=== PATIENT | male | born 1955 | race Caucasian/White ===

== ENCOUNTER → 2017-01-20 | Outpatient (CLI) | payer BC ==
[2017-01-20 12:11] LABS: ABSOLUTE LYMPHOCYTES (AUTO) 2.6 10^3/uL (0.5-4.7); ABSOLUTE MONOCYTES (AUTO) 0.4 10^3/uL (0.1-1.4); ABSOLUTE NEUT (AUTO) 3.4 10^3/uL (1.7-8.2); BASOPHILS % (AUTO) 0.5 % (0-2); EOSINOPHILS % (AUTO) 0.1 % (0-6); HEMATOCRIT 45.5 % (37.9-51.0); HEMOGLOBIN 15.7 g/dL (13.5-17.0); HGB HCT DIFFERENCE 1.6; MEAN CORPUSCULAR HEMOGLOBIN 32.1 pg (27.0-33.4); MEAN CORPUSCULAR HGB CONC 34.6 g/dL (32.0-36.0); MEAN CORPUSCULAR VOLUME 93 fl (80-97); MONOCYTES % (AUTO) 5.9 % (3-13); RED CELL DISTRIBUTION WIDTH 14.1 % (11.5-14.0); SEGMENTED NEUTROPHILS % (AUTO) 52.5 % (42-78); WHITE BLOOD COUNT 6.4 10^3/uL (4.0-10.5)
[2017-01-20 12:26] LABS: APPEARANCE,URINE CLEAR; BILIRUBIN,URINE NEGATIVE (NEGATIVE); GLUCOSE, URINE NEGATIVE (NEGATIVE); KETONES,URINE NEGATIVE (NEGATIVE); LEUKOCYTE ESTERASE,URINE NEGATIVE (NEGATIVE); NITRITE,URINE NEGATIVE (NEGATIVE); PROTEIN,URINE NEGATIVE (NEGATIVE); URINE SPECIFIC GRAVITY 1.017
[2017-01-20 12:34] LABS: ANION GAP 15 (5-19); BLOOD UREA NITROGEN 10 mg/dL (7-20); CALCIUM 9.5 mg/dL (8.4-10.2); CARBON DIOXIDE 25 mmol/L (22-30); CHLORIDE 104 mmol/L (98-107); CREATININE RESULT 0.86 mg/dL (0.52-1.25); GLUCOSE 89 mg/dL (75-110); POTASSIUM 4.4 mmol/L (3.6-5.0); SODIUM 143.7 mmol/L (137-145)
--- NOTE | 2017-01-20 12:48 | RADIOLOGY REPORT (SQ) ---
EXAM DESCRIPTION: CHEST PA/LATERAL COMPLETED DATE/TIME: 01/20/2017 12:11 pm REASON FOR STUDY: PRE-OP COMPARISON: 08/11/2015 EXAM PARAMETERS: NUMBER OF VIEWS: two views TECHNIQUE: Digital Frontal and Lateral radiographic views of the chest acquired. RADIATION DOSE: NA LIMITATIONS: none FINDINGS: LUNGS AND PLEURA: No opacities, masses or pneumothorax. No pleural effusion. MEDIASTINUM AND HILAR STRUCTURES: No masses or contour abnormalities. HEART AND VASCULAR STRUCTURES: Heart normal size. No evidence for failure. BONES: No acute findings. HARDWARE: None in the chest. OTHER: No other significant finding. IMPRESSION: NO SIGNIFICANT RADIOGRAPHIC FINDING IN THE CHEST. TECHNICAL DOCUMENTATION: JOB ID: [id number] [employer]- All Rights Reserved
--- NOTE | 2017-01-20 18:38 | EKG REPORT ---
SEVERITY:- BORDERLINE ECG - SINUS RHYTHM BORDERLINE INFERIOR Q WAVES : Confirmed by: Marie Arroyo 20-Jan-2017 18:36:24
== END ==
LOC: OD 11:20
PROVIDERS: ATTEND Orthopaedic Surgery
DX: Z01.810 Encounter for preprocedural cardiovascular examination (principal); Z01.812 Encounter for preprocedural laboratory examination; Z01.818 Encounter for other preprocedural examination
CPT/HCPCS: 36415; 71020; 80048; 81001; 85025; 93005; 93010

== ENCOUNTER 2017-02-17 05:44 | Inpatient (IN) | payer BC ==
[~2017-02-17 05:44] MED LIST: LACTATED RINGERS 1000 ML IV PRN; LIDOCAINE 0.5% INJ-PF (5 MG/ML) 50 ML SDV SUBCUT PRN
[2017-02-17] MEDS ORDERED: VANCOMYCIN HCL INJ 1000 MG VIAL ONE (05:51)
[2017-02-17] MEDS ORDERED: CEFAZOLIN INJ 1 GM VIAL ONE (06:33)
[2017-02-17] MEDS ORDERED: BUPIVACAINE INJ/PF LIPOSOME/PF 266 MG/20 ML SDV ONE (06:44)
[2017-02-17] MEDS ORDERED: THROMBIN (BOVINE) TOPICAL 20000 UNIT VIAL ONE (06:44)
[2017-02-17] MEDS ORDERED: THROMBIN (BOVINE) 5000 UNIT EPITAXIS KIT ONE (06:44)
[2017-02-17] MEDS ORDERED: MIDAZOLAM 2 MG/2 ML INJ ONE (07:09)
[2017-02-17] MEDS ORDERED: FENTANYL CITRATE INJ/PF 100 MCG/2 ML AMPUL ONE (07:09)
[2017-02-17] MEDS ORDERED: EPHEDRINE SULFATE INJ 50 MG/1 ML AMPULE ONE (07:09)
[2017-02-17] MEDS ORDERED: ONDANSETRON HCL INJ/PF 4 MG/2 ML SDV ONE (07:10)
[2017-02-17] MEDS ORDERED: IBUPROFEN INJ 800 MG/8 ML VIAL IV ONE (07:10)
[2017-02-17] MEDS ORDERED: TRANEXAMIC ACID INJ/PF 1,000 MG/10 ML SDV IV ONE ×2 (07:10→10:30)
[2017-02-17] MEDS ORDERED: PROPOFOL INJ 200 MG/20 ML VIAL IV ONE (07:10)
[2017-02-17] MEDS ORDERED: OXYCODONE HCL SR 10 MG TABLET PO PRN (07:16)
[2017-02-17] MEDS ORDERED: LANSOPRAZOLE 15 MG TAB.RAP.DR PO PRN (07:17)
[2017-02-17] MEDS ORDERED: DIPHENHYDRAMINE HCL 50 MG/ML VIAL IV PRN ×2 (08:04→08:42)
[2017-02-17] MEDS ORDERED: FENTANYL CITRATE INJ/PF 100 MCG/2 ML AMPUL IV PRN ×3 (08:04)
[2017-02-17] MEDS ORDERED: MEPERIDINE HCL/PF INJ 25 MG/1 ML DISP.SYRIN IV PRN (08:04)
[2017-02-17] MEDS ORDERED: OXYCODONE-ACETAMINOPHEN 5-325 MG TABLET PO PRN ×2 (08:04)
[2017-02-17] MEDS ORDERED: PROMETHAZINE HCL INJ 25 MG/1 ML VIAL IV PRN ×2 (08:04)
--- NOTE | 2017-02-17 08:29 | Operative Report ---
Operative Report DATE OF SURGERY: 02/17/17 PREOPERATIVE DIAGNOSIS: Right knee arthritis OPERATION: Right knee arthroplasty SURGEON: MARIBELL OBREGON 1ST COUNCILPERSON: LEIGH ALEJANDRO ANESTHESIA: Spinal TISSUE REMOVED OR ALTERED: Bone to pathology ESTIMATED BLOOD LOSS: 100 PROCEDURE: Implants used: Femur: [place] triathlon #7 CR femur Tibia: 7 tibia Tibial liner: 9 mm CS insert Patella: 40 mm oval patella Procedure with the patient supine on the operating table the right the limb is prepped and draped in a sterile fashion. The limb was elevated for exsanguination and the tourniquet inflated to 280 torr. A standard midline median parapatellar approach the knee is taken. Access is gained to the femoral canal through the intercondylar notch. Intramedullary alignment instrumentation used to resect 10 mm of distal femur in 5 of valgus. Sizing guide indicated a size 7 femur. Appropriate cutting jig is then used to fashion anterior posterior and chamfer cuts. A trial reduction femurs performed and this is judged to be adequate. Attention was next turned to the tibia. Using an extra medullary alignment system 9 millimeters was resected off the lateral tibial plateau. This is sized to a size 7 tibia. A trial reduction was now performed with a 7 femur and a 7 tibia using a 9 millimeters spacer. It is full extension and central patellofemoral tracking. The articular surface the patella was next resected using an oscillating saw. All trial implants were removed. Polymethylmethacrylate is mixed and used to cement the above implants in place. On adequate curing the cement excess cement was removed the tourniquet was deflated hemostasis obtained the wound is then closed in layers using interrupted Vicryl followed by pushpa. A sterile compressive dressing was applied and the patient returned to recovery room in satisfactory condition.
[2017-02-17] MEDS ORDERED: MAG HYDROX/AL HYDROX/SIMETH SUSP 30 ML UDCUP PO PRN ×2 (08:42→09:30)
[2017-02-17] MEDS ORDERED: MORPHINE SULFATE 10 MG/ML INJ IM PRN (08:42)
[2017-02-17] MEDS ORDERED: MORPHINE SULFATE 10 MG/ML INJ IV PRN ×3 (08:42)
[2017-02-17] MEDS ORDERED: ONDANSETRON 4 MG TAB.RAPDIS PO PRN ×2 (08:42→09:30)
[2017-02-17] MEDS ORDERED: ZOLPIDEM TARTRATE 5 MG TABLET PO PRN ×2 (08:42→09:30)
[2017-02-17] MEDS ORDERED: ONDANSETRON HCL INJ/PF 4 MG/2 ML SDV IV PRN ×2 (08:42→09:30)
[2017-02-17] MEDS ORDERED: PAROXETINE HCL PO SCH (10:00)
[2017-02-17] MEDS ORDERED: ATORVASTATIN CALCIUM 20 MG TABLET PO SCH (10:00)
[2017-02-17] MEDS ORDERED: PAROXETINE HCL 20 MG TABLET PO SCH (10:00)
--- NOTE | 2017-02-17 11:08 | RADIOLOGY REPORT (SQ) ---
EXAM DESCRIPTION: KNEE RIGHT 2 VIEWS/ portable COMPLETED DATE/TIME: 02/17/2017 10:40 am REASON FOR STUDY: Post OP -Long Cassette in PACU M17.11 UNILATERAL PRIMARY OSTEOARTHRITIS, RIGHT KN EE COMPARISON: None. NUMBER OF VIEWS: 2 view(s). TECHNIQUE: Digital radiographic images of the right knee post-procedure. Portable AP and lateral radiographic images acquired of the right knee. LIMITATIONS: None. FINDINGS: BONES: No worrisome or unexpected findings post-procedure. DEVICE: Knee arthroplasty in place. No acute fractures. SOFT TISSUES: No worrisome findings. Expected postoperative soft tissue changes. IMPRESSION: SATISFACTORY POSTOPERATIVE right KNEE. TECHNICAL DOCUMENTATION: JOB ID: [id number] [employer]- All Rights Reserved
[2017-02-17] MEDS ORDERED: RINGERS SOLUTION,LACTATED 1,000 ML IV PRN (11:24)
[2017-02-17] MEDS: OXYCODONE HCL IR 5 MG TABLET PO PRN (14:13)
[2017-02-17] MEDS ORDERED: ACETAMINOPHEN 100 ML IV ONE (14:42)
[2017-02-17] MEDS: IBUPROFEN 800 MG in NORMAL SALINE 250 ML IV SCH (16:08)
[2017-02-17] MEDS ORDERED: HYDROMORPHONE HCL INJ/PF 2 MG/ML AMPULE IV PRN (16:36)
[2017-02-17] MEDS: PREGABALIN 75 MG CAPSULE PO SCH (16:57)
[2017-02-17] MEDS ORDERED: VANCOMYCIN HCL 1,000 MG in DEXTROSE 5%-WATER 250 ML IV ONE (20:42)
[2017-02-17] MEDS: OXYCODONE HCL SR 10 MG TABLET PO SCH (22:59)
[2017-02-17] MEDS: RIVAROXABAN 10 MG TABLET PO SCH (22:59)
[2017-02-17] MEDS: PAROXETINE HCL 20 MG TABLET PO SCH (23:00)
[2017-02-17] MEDS: ATORVASTATIN CALCIUM 20 MG TABLET PO SCH (23:01)
[2017-02-18] MEDS: IBUPROFEN 800 MG in NORMAL SALINE 250 ML IV SCH ×3 (00:59→15:56)
[2017-02-18] MEDS: OXYCODONE HCL IR 5 MG TABLET PO PRN ×3 (01:48→14:44)
[2017-02-18] MEDS: LANSOPRAZOLE 30 MG TAB.RAP.DR PO SCH (06:18)
[2017-02-18 06:52] LABS: HEMATOCRIT 35.5 % (37.9-51.0); HEMOGLOBIN 12.2 g/dL (13.5-17.0); HGB HCT DIFFERENCE 1.1; MEAN CORPUSCULAR HEMOGLOBIN 32.4 pg (27.0-33.4); MEAN CORPUSCULAR HGB CONC 34.3 g/dL (32.0-36.0); MEAN CORPUSCULAR VOLUME 94 fl (80-97); RED BLOOD COUNT 3.76 10^6/uL (4.35-5.55); RED CELL DISTRIBUTION WIDTH 14.7 % (11.5-14.0)
--- NOTE | 2017-02-18 07:07 | PDOC PROGRESS REPORT ---
Subjective Progress Note for:: 02/18/17 Subjective:: 61-year-old white male 1 day status post total right knee arthroplasty. Patient reports his pain was well controlled overnight however this morning he is experiencing sharp shooting pains down the lateral aspect of his right thigh. His postop compression dressing was removed and patient felt some relief with this change. His OpSite honeycomb dressing was clean dry and intact. Physical Exam Vital Signs: Temp Pulse Resp BP Pulse Ox 37.0 C 85 18 114/62 95 02/17/17 19:51 02/17/17 19:51 02/17/17 19:51 02/17/17 19:51 02/17/17 19:51 Intake & Output 02/17/17 02/18/17 02/19/17 06:59 06:59 06:59 Intake Total 0 7020 Output Total 5885 Balance 0 1135 Weight 106.6 kg General appearance: PRESENT: no acute distress, well-developed, well-nourished Head exam: PRESENT: atraumatic, normocephalic Respiratory exam: PRESENT: unlabored Pulses: PRESENT: normal dorsalis pedis pul, +2 pedal pulses bilateral Vascular exam: PRESENT: normal capillary refill Additional comments: Patient is sitting upright with right lower extremity in extension with slight flexion contracture in but this morning. His OpSite compression dressing is in place and in was removed this morning. Once the dressing is removed there is evidence of pedal edema as well as edema up to the level of the right knee. There is no evidence of erythema, ecchymosis or induration. His OpSite honeycomb dressing is clean dry and intact. He has brisk capillary refill to toes on bilateral feet his sensory and motor functions are intact and his distal neurovascular exam is intact. Musculoskeletal exam: PRESENT: ambulatory Additional comments: Patient makes great progress with physical therapy ambulating 100 feet on postop day 1. He will continue to work with physical therapy to improve strength range of motion of the right knee. Neurological exam: PRESENT: alert, awake, oriented to person, oriented to place , oriented to time, oriented to situation, CN II-XII grossly intact. ABSENT: motor sensory deficit Psychiatric exam: PRESENT: appropriate affect, normal mood. ABSENT: homicidal ideation, suicidal ideation Skin exam: PRESENT: dry, intact, warm. ABSENT: cyanosis, rash Results Impressions: Knee X-Ray 02/17/17 08:44 IMPRESSION: SATISFACTORY POSTOPERATIVE right KNEE. Assessment & Plan - Diagnosis (1) Arthritis of right knee Is this a current diagnosis for this admission?: Yes - Plan Summary Plan Summary: 61-year-old white male 1 day status post total right knee arthroplasty. Patient makes great progress with physical therapy ambulating 100 feet independently and he will continue to work with PT to improve strength range of motion of the right knee. His pain was well controlled overnight although this morning he was experiencing sharp shooting pains on lateral right thigh. Patient's postop compression dressing was removed this morning with patient expressing some immediate relief when it is removed. His OpSite honeycomb dressing is clean dry and intact. Patient was advised to monitor this sharp shooting pains. We will plan for discharge later this week possibly tomorrow.
[2017-02-18 07:28] LABS: ANION GAP 8 (5-19); BLOOD UREA NITROGEN 11 mg/dL (7-20); CALCIUM 8.4 mg/dL (8.4-10.2); CARBON DIOXIDE 28 mmol/L (22-30); CHLORIDE 105 mmol/L (98-107); CREATININE RESULT 0.81 mg/dL (0.52-1.25); GLUCOSE 90 mg/dL (75-110); POTASSIUM 4.3 mmol/L (3.6-5.0); SODIUM 140.8 mmol/L (137-145)
[2017-02-18] MEDS: ACETAMINOPHEN 325 MG TABLET PO PRN ×3 (08:47→21:07)
[2017-02-18] MEDS: OXYCODONE HCL SR 10 MG TABLET PO SCH ×2 (10:15→21:06)
[2017-02-18] MEDS: PREGABALIN 75 MG CAPSULE PO SCH ×2 (10:15→18:06)
[2017-02-18] MEDS ORDERED: INFLUENZA ADLT QUAD (36MOS+) 2017-18 VAC 0.5 ML SYR IM PRN (18:50)
[2017-02-18] MEDS: PAROXETINE HCL 20 MG TABLET PO SCH (21:08)
[2017-02-18] MEDS: RIVAROXABAN 10 MG TABLET PO SCH (21:08)
[2017-02-18] MEDS: ATORVASTATIN CALCIUM 20 MG TABLET PO SCH (21:12)
[2017-02-19] MEDS: IBUPROFEN 800 MG in NORMAL SALINE 250 ML IV SCH ×2 (00:21→08:49)
[2017-02-19] MEDS: OXYCODONE HCL IR 5 MG TABLET PO PRN (06:04)
[2017-02-19] MEDS: ACETAMINOPHEN 325 MG TABLET PO PRN (06:04)
[2017-02-19] MEDS: LANSOPRAZOLE 30 MG TAB.RAP.DR PO SCH (06:04)
[2017-02-19 06:29] LABS: HEMATOCRIT 32.2 % (37.9-51.0); HEMOGLOBIN 11.2 g/dL (13.5-17.0); HGB HCT DIFFERENCE 1.4; MEAN CORPUSCULAR HEMOGLOBIN 32.6 pg (27.0-33.4); MEAN CORPUSCULAR HGB CONC 34.9 g/dL (32.0-36.0); MEAN CORPUSCULAR VOLUME 94 fl (80-97); RED BLOOD COUNT 3.45 10^6/uL (4.35-5.55); RED CELL DISTRIBUTION WIDTH 14.4 % (11.5-14.0); WHITE BLOOD COUNT 7.8 10^3/uL (4.0-10.5)
--- NOTE | 2017-02-19 07:11 | PDOC DISCHARGE SUMMARY ---
General - Admit/Disc Date/PCP Admission Date/Primary Care Provider: 02/17/17 05:44 RUBA HARE MD Discharge Date: 02/19/17 - Discharge Diagnosis (1) Arthritis of right knee Is this a current diagnosis for this admission?: Yes - Additional Information Resuscitation Status: Full Code Discharge Diet: As Tolerated, Regular Discharge Activity: No Driving, No tub bath, Walk Frequently Home Medications: Atorvastatin Calcium [Lipitor 20 mg Tablet] 20 mg PO QHS 02/17/17 Paroxetine HCl [Paxil] 10 mg PO DAILY 02/17/17 Sildenafil Citrate [Sildenafil] 20 mg PO DAILYP PRN 02/17/17 History of Present Illness History of Present Illness: ANTONY MANZANARES is a 61 year old male with right knee arthritis is admitted for elective total right knee arthroplasty. Hospital Course Hospital Course: 61-year-old white male with right knee arthritis was admitted to the OR for an elective total right knee arthroplasty. He is taken to the PACU in satisfactory condition. He was then taken to the surgical floor where his pain was controlled by nursing staff and Dr. Nunn where he was seen by physical therapy for weightbearing as tolerated. He made great progress with physical therapy ambulating up to 350 feet independently. He will be discharged to his home today with home health nursing, wheeled walker, bedside commode, and home physical therapy. Physical Exam Vital Signs: Temp Pulse Resp BP Pulse Ox 37.4 C 78 16 108/66 97 02/18/17 23:45 02/18/17 23:45 02/18/17 23:45 02/18/17 23:45 02/18/17 23:45 Intake & Output 02/18/17 02/19/17 02/20/17 06:59 06:59 06:59 Intake Total 7020 1624 Output Total 5804 1600 Balance 1135 274 Weight 106.6 kg General appearance: PRESENT: no acute distress, well-developed, well-nourished Head exam: PRESENT: atraumatic, normocephalic Respiratory exam: PRESENT: unlabored Pulses: PRESENT: normal dorsalis pedis pul, +2 pedal pulses bilateral Vascular exam: PRESENT: normal capillary refill Additional comments: Patient is sitting upright in hospital bed with right lower extremity in extension with slight flexion contracture of the knee. He notes that previous pain experienced on the lateral aspect of his right knee joint has since subsided. There is brisk capillary refill to toes on bilateral lower extremities he has +2 pedal pulses and moderate pedal edema of the right foot. His sensory and motor functions are intact and his distal neurovascular exam is intact. Musculoskeletal exam: PRESENT: ambulatory Additional comments: Patient makes great progress with physical therapy ambulating 350 feet independently. He will continue to work with home physical therapy to improve strength and range of motion of the right lower extremity. Neurological exam: PRESENT: alert, awake, oriented to person, oriented to place , oriented to time, oriented to situation, CN II-XII grossly intact. ABSENT: motor sensory deficit Psychiatric exam: PRESENT: appropriate affect, normal mood. ABSENT: homicidal ideation, suicidal ideation Skin exam: PRESENT: dry, intact, warm. ABSENT: cyanosis, rash Results Laboratory Results: 02/19/17 05:44 02/18/17 06:01 02/18/17 02/19/17 06:01 05:44 WBC 7.8 RBC 3.45 L Hgb 11.2 L Hct 32.2 L MCV 94 MCH 32.6 MCHC 34.9 RDW 14.4 H Plt Count 164 Sodium 140.8 Potassium 4.3 Chloride 105 Carbon Dioxide 28 Anion Gap 8 BUN 11 Creatinine 0.81 Est GFR ( Amer) > 60 Est GFR (Non-Af Amer) > 60 Glucose 90 Calcium 8.4 Impressions: Knee X-Ray 02/17/17 08:44 IMPRESSION: SATISFACTORY POSTOPERATIVE right KNEE. Plan Discharge Plan: 61-year-old white male 2 days status post total right knee arthroplasty his pain is now well controlled and he no longer experiencing his the sharp pains on the lateral joint line. He will be discharged home today with home health nursing, home physical therapy, wheeled walker, bedside commode. The visiting nurse service will change his OpSite dressing when they see appropriate i.e. when it is saturated with taty blood. He will follow-up with Dr. Nunn and Zach PRYOR at [facility] for surgery 2 weeks postoperatively for staple removal and reevaluation. Time Spent: Less than 30 Minutes
[2017-02-19] MEDS: OXYCODONE HCL SR 10 MG TABLET PO SCH (09:28)
[2017-02-19] MEDS: PREGABALIN 75 MG CAPSULE PO SCH (09:28)
[2017-02-19 10:44] VITALS: BP 138/70
== END 2017-02-19 10:55 | disposition home or self-care (01) | DRG 470 ==
LOC: INOR 05:44 → 4S 10:34
PROVIDERS: ADMIT Orthopaedic Surgery; ATTEND Orthopaedic Surgery
PROC: 0SRC0J9 Replacement of Right Knee Joint with Synthetic Substitute, Cemented, Open Approach (ICD-10-PCS; principal; 2017-02-17 07:30)
PROC: 3E0234Z Introduction of Serum, Toxoid and Vaccine into Muscle, Percutaneous Approach (ICD-10-PCS; 2017-02-19)
DX: M17.11 Unilateral primary osteoarthritis, right knee (principal); Z96.652 Presence of left artificial knee joint; F17.210 Nicotine dependence, cigarettes, uncomplicated; Z79.899 Other long term (current) drug therapy; Z23 Encounter for immunization
CPT/HCPCS: 01402; 36415; 80048; 85027; 88305; 88311; 90686; 94799; C2625; C9290; J0131; J0690; J1170; J1200; J1741; J2250; J2405; J2704; J3010; J3370; J3490; J7050; J7060; J7120

== ENCOUNTER 2018-05-12 07:42 | Day surgery (SDC) | payer BC ==
[~2018-05-12 07:42] MED LIST changes: +DIPHENHYDRAMINE HCL 50 MG/ML VIAL ONE; +EPINEPHRINE INJ 1 MG/10 ML DISP.SYRIN ONE; +FLUMAZENIL INJ 0.5 MG/5 ML VIAL ONE; +GLUCAGON,HUMAN RECOMB 1 MG INJ ONE; -LACTATED RINGERS 1000 ML IV PRN; -LIDOCAINE 0.5% INJ-PF (5 MG/ML) 50 ML SDV SUBCUT PRN; +NALOXONE HCL INJ/PF 0.4 MG/1 ML SDV ONE; +ONDANSETRON HCL INJ/PF 4 MG/2 ML SDV ONE
[2018-05-12] MEDS: MIDAZOLAM 2 MG/2 ML INJ ONE ×3 (08:11→08:22)
[2018-05-12] MEDS: FENTANYL CITRATE INJ/PF 100 MCG/2 ML AMPUL ONE ×5 (08:13→09:07)
--- NOTE | 2018-05-12 09:55 | Operative Report ---
Nonrecallable Operative Report DATE OF SURGERY: 05/12/18 PREOPERATIVE DIAGNOSIS: gerd, screening colonosocpy. POSTOPERATIVE DIAGNOSIS: hiatal hernia, gastritis. OPERATION: upper endosocopy and biopsy. screening colonoscopy SURGEON: BOB DOTSON ANESTHESIA: Moderate Sedation TISSUE REMOVED OR ALTERED: esophageal biopsy. COMPLICATIONS: none ESTIMATED BLOOD LOSS: min INTRAOPERATIVE FINDINGS: gastritis, hiatal hernia PROCEDURE: see dictation
[2018-05-12 10:39] VITALS: BP 111/70
--- NOTE | 2018-05-12 11:06 | OPERATIVE REPORT E ---
Operative Report NAME: ANTONY MANZANARES : 1955 AGE: 62Y DATE OF SURGERY: 05/12/2018 ROOM: PREOPERATIVE DIAGNOSIS: GASTROESOPHAGEAL REFLUX DISEASE AND NEED FOR SCREENING COLONOSCOPY. POSTOPERATIVE DIAGNOSIS: GASTROESOPHAGEAL REFLUX DISEASE AND NEED FOR SCREENING COLONOSCOPY. OPERATION: Upper esophagogastroduodenoscopy and screening colonoscopy. SURGEON: BOB DOTSON M.D. INDICATIONS FOR PROCEDURE: This 62-year-old male has been seen for epigastric pain and reflux disease. He has had reflux for a number of years, which has only poorly responded to proton pump inhibitors and he was therefore scheduled for an upper endoscopy. In addition to that, his last colonoscopy was greater than 10 years ago and he is scheduled for a screening colonoscopy. PROCEDURE: Patient was brought to the Endoscopy Suite in awake, alert, stable condition and given some IV sedation. Approximately 6 mg of Versed and 150 mcg of fentanyl were used during the procedure. He was placed in a left lateral decubitus position and after appropriate timeout, we began the upper endoscopic portion of the procedure. Using the Olympus gastroscope, it was easily passed into the posterior pharynx and then with minor difficulty we eventually passed into the esophagus. The esophagus was visualized all of the way down to the gastroesophageal junction as well, then into the stomach, and then the fundus was evaluated with a retroflexed J maneuver. We passed the scope all of the way to the pylorus and the pylorus appeared to be normal and then we brought it back towards the antrum. There was no evidence of any polyps or any significant mucosal disease of his gastric antrum or body of the stomach. On retroflex, we did notice a moderate size hiatal hernia with no evidence of any erosions at the diaphragmatic hiatus. We then pulled the scope back into the distal esophagus. There was some apparent gastritis in the tim of the stomach but the distal esophagus and Z-line appeared to be normal. The Z-line was approximately 38 cm. We did biopsy the distal esophagus x1 to evaluate for any Sims's esophagus. We withdrew the scope slowly through the esophagus and it all appeared to be normal as was the posterior pharynx and that concluded the upper endoscopic portion of the procedure. The table was then turned. The patient remained in a left lateral decubitus position. We began the colonoscopy. Using the Olympus colonoscope, it was easily passed into the rectum and then slowly manipulated past the sigmoid up into the descending colon. We evaluated the splenic flexure, the transverse colon, the hepatic flexure, and the descending colon to the cecum. As we slowly withdrew the scope, there was no evidence of any polyps that I could note in the cecum. There was a moderate amount of stool leftover from his bowel prep and it made it somewhat difficult to evaluate the mucosa completely, however, upon using suction and irrigation we were eventually able to get a good look at the entire circumferential mucosa from the cecum down to the rectum. There was no evidence of any polyps in the ascending colon, hepatic flexure, transverse colon, splenic flexure, and descending colon. There was no evidence of any diverticulosis in the sigmoid colon and the descending colon. The patient did not require a biopsy. There was no evidence of any polyps. As we withdrew the scope, he had some grade-II hemorrhoids that were seen but there was no evidence of any bleeding and the colonoscope was then removed. IMPRESSION: 1. NORMAL COLONOSCOPY. NEXT COLONOSCOPY IN 10 YEARS. 2. GASTRITIS WITH MODERATE-SIZED HIATAL HERNIA. DICTATING PHYSICIAN: BOB DOTSON M.D. [id number] PHY#: [id number] ID: [id number] JOB#: [id number] ACCT: [id number] cc:BOB DOTSON M.D. >
== END 2018-05-12 10:40 | disposition home or self-care (01) ==
LOC: END 07:42
PROVIDERS: ATTEND Surgery
DX: Z12.11 Encounter for screening for malignant neoplasm of colon (principal); R19.4 Change in bowel habit; Z86.010 Personal history of colon polyps; K44.9 Diaphragmatic hernia without obstruction or gangrene; N43.3 Hydrocele, unspecified; K21.0 Gastro-esophageal reflux disease with esophagitis; Z88.5 Allergy status to narcotic agent; E78.00 Pure hypercholesterolemia, unspecified; F17.210 Nicotine dependence, cigarettes, uncomplicated; Z79.899 Other long term (current) drug therapy; Z96.653 Presence of artificial knee joint, bilateral; F12.90 Cannabis use, unspecified, uncomplicated; Z01.818 Encounter for other preprocedural examination
CPT/HCPCS: 43239; 45378; 88305 ×2; J2250; J1200; J3010; J0171; J1610; J2310; J2405; J3490